=== PATIENT | male | born 1960 | race Caucasian/White ===

== ENCOUNTER 2017-04-19 18:05 | Emergency (ER) | payer SELFPAY ==
[2017-04-19 18:55] LABS: BASOPHIL# 0.1 X 10^3uL (0.0-0.1); BASOPHILS 0.7 % (0.0-2.0); EOSINOPHILS 1.6 % (0.0-6.0); EOSINOPHILS# 0.1 X 10^3uL (0.0-0.4); HEMATOCRIT 42.8 % (42.0-54.0); HEMOGLOBIN 14.3 g/dL (14.0-18.0); LYMPHOCYTES 31.1 % (20.0-40.0); LYMPHOCYTES# 2.8 X 10^3uL (0.8-3.8); MEAN CELL VOLUME 87.7 fL (80.0-100.0); MEAN CORPUS. HGB CONCENTRATION 33.5 g/dL (32.0-36.0); MEAN CORPUSCULAR HEMOGLOBIN 29.4 pg (29.0-35.0); MEAN PLATELET VOLUME 10.3 fL (7.4-10.4); MONOCYTES 9.1 % (2.0-10.0); MONOCYTES# 0.8 X 10^3uL (0.2-1.0); NEUTROPHILS 57.5 % (54.0-75.0); NEUTROPHILS# 5.3 X 10^3uL (2.6-6.7); RED BLOOD COUNT 4.88 X 10^6uL (4.20-6.10); RED CELL DISTRIBUTION WIDTH 13.9 % (11.5-14.5); WHITE BLOOD COUNT 9.1 X 10^3uL (3.9-10.7)
[2017-04-19 18:58] LABS: A/G RATIO 1.3; ALBUMIN 4.2 g/dL (3.5-5.0); BILIRUBIN, TOTAL 0.5 mg/dL (0.2-1.3); CALCIUM 9.5 mg/dL (8.4-10.2); MAGNESIUM 1.3 mg/dL (1.6-2.3); POTASSIUM 4.9 mmol/L (3.5-5.1); TOTAL PROTEIN 7.5 g/dL (6.3-8.2)
[2017-04-19] MEDS ORDERED: CLINDAMYCIN HCL 150 MG CAPSULE PO ONE (19:15)
--- NOTE | 2017-04-19 19:44 | ER NURSING DOCUMENTATION ---
Nurse's Notes [facility] Name:Mikey Chacon Age:56 yrs Sex:Male :1960 Arrival Date:04/19/2017 Time:18:05 Bed1 Private MD: Diagnosis:Cellulitis of Upper Limb Presentation: 04/19 18:06 Acuity: EUGENE 3 lc 18:13 Presenting complaint: Patient states: RELEASED FROM [facility] ON FROM HYPERKALEMIA lc EPISODE. TODAY C/O REDNESS, FIRMESS AND PAIN TO LEFT UPPER ARM FROM IV SITE. NO CHEST PAIN, SOB OR OTHER S/S. Transition of care: patient was not received from another setting of care. Notified ED Physician of patient's arrival and CC. 18:13 Method Of Arrival: Private Vehicle lc Triage Assessment: 18:17 General: Appears in no apparent distress, Behavior is appropriate for age, cooperative. lc Pain: Complains of pain in left bicep Pain radiates to anterior aspect of left shoulder Pain At worst was 8 out of 10 on a pain scale. Quality of pain is described as burning, aching, Pain began 3 hours ago. Neuro: Level of Consciousness is awake, alert, Oriented to person, place, time, event, Planning Coordinator are equal bilaterally Moves all extremities. Cardiovascular: Rhythm is sinus rhythm. Respiratory: Airway is patent Respiratory effort is even, unlabored, Breath sounds are clear bilaterally. Derm: Skin is pink, warm & dry. Injury Description: R/O PHLEBITIS. Historical: - Allergies: No known drug Allergies; - PMHx: KIDNEY CANCER; - PSHx: Tonsillectomy; PARTIAL KIDNEY REMOVED; - Tetanus: < 10 years. - Ebola Screening: : Patient negative for fever greater than or equal to 101.5 degrees Fahrenheit, and additional compatible Ebola Virus Disease symptoms. Patient denies exposure to infectious person. Patient denies travel to an Ebola-affected area in the 21 days before illness onset. No symptoms or risks identified at this time. . - Immunization history: Flu Vaccine < 1 year. - Social history: Smoking status: Patient states was never smoker of tobacco. Screenin:20 Infectious Disease Risk None. Abuse screen: Denies threats or abuse. Denies injuries lc from another. Nutritional screening: No deficits noted. Assessment: 18:20 See Triage Assessment done by same RN. lc Vital Signs: 18:07 BP 166 / 75; Pulse 73; Resp 20; Temp 98.4(O); Pulse Ox 91% on R/A; Weight 140.61 kg arc (R); Height 6 ft. 0 in. (182.88 cm) (R); Pain 8/10; 18:07 Body Mass Index 42.04 (140.61 kg, 182.88 cm) arc ED Course: 18:05 Patient arrived in ED. lm3 18:[address] RN is Primary Nurse. 18:06 Triage completed. lc 18:07 Luis Manuel Simpson MD is Attending Physician. tl1 18:22 Valuables Remains with patient Patient has correct armband on for positive lc identification. Bed in low position. Call light in reach. Side rails up X 1. Adult w/ patient. abseiling instructor on. Pulse ox on. 18:23 Labs drawn. By Lab Staff Sent per order to lab. 18:29 Elevated left arm. 19:37 Primary Nurse role handed off by Gretchen Street, SMILEY [facility] 19:37 Chrystal Matson RN is Primary Nurse. sc1 Administered Medications: 19:39 CANCELLED (Patient Refused): Clindamycin 450 mg PO once sc1 19:39 CANCELLED (Patient Refused): Clindamycin 150 mg PO once; 6 TABLETS TO GO HOME: 3 sc1 TABLETS BY MOUTH EVERY 6 HOURS. Outcome: 18:40 Discharge ordered by . tl1 19:41 Discharged to home ambulatory. sc1 19:41 Condition: stable 19:41 Discharge instructions given to patient, Instructed on discharge instructions, follow up and referral plans. Demonstrated understanding of instructions. 19:43 Patient left the ED. sc1 Signatures: Gretchen Street RN RN Chrystal Matson RN RN [facility] Luis Manuel Simpson MD MD 1 Chew, Yana, Reg Reg arc Vicki Mcguire 3
--- NOTE | 2017-04-19 19:44 | ER PHYSICIAN DOCUMENTATION ---
Physician Documentation [facility] Name:Mikey Chacon Age:56 yrs Sex:Male :1960 Arrival Date:04/19/2017 Time:18:05 Bed1 Private MD: Luis Manuel Irby Disposition: 04/19 20:36 Chart complete. tl1 Disposition: 04/19/17 18:40 Discharged to Home/Self Care. Impression: Cellulitis of Upper Limb. - Condition is Good. - Discharge Instructions: CELLULITIS. - Prescriptions for Clindamycin HCl 150 mg Oral - take 3 capsule by ORAL route every 6 hours for 10 days; 120 capsule. - Medical Reconciliation form form. - Follow up: Private Physician; When: 2 - 3 days; Reason: Recheck today's complaints, Continuance of care. - Problem is new. - Symptoms are unchanged. - Notes: GO TO [facility] NOW TO CHECK INTO THE EMERGENCY DEPARTMENT FOR AN ULTRASOUND OF YOUR ARM AND FURTHER EVALUATION IF YOU ARE NOT BETTER IN A DAY OR TWO, GO TO [facility] FOR AN ULTRASOUND OF YOUR ARM AND RE-EXAMINATION. RETURN HERE FOR FEVER, SHORTNESS OF BREATH, CHEST PAIN, COUGHING UP BLOOD,OR IF WORSE IN ANY WAY. HPI: 18:07 This 56 yrs old Male presents to ER with complaints of Left Arm Pain. tl1 18:07 The patient or guardian complains of pain, swelling. The complaints affect the left tl1 bicep. Onset: The symptom(s)/episode began/occurred gradually, today. He was hospitalized a week ago at [facility] in [place] for back pain and was found, incidentally to have hyperkalemia ( ?? 7.8) His meds were changed around, and he was d/c'd 3 days ago. Since then he has been well but today noted progressive redness, swelling and pain in the left biceps area, above where his IV was. He denies f/c/s. He called nursing staff at [facility] and was told to come to the ED for evaluation. He denies CP or dyspnea. He says he had a partial left nephrectomy in November of this year for renal cell carcinoma.. Historical: - Allergies: No known drug Allergies; - PMHx: KIDNEY CANCER; - PSHx: Tonsillectomy; PARTIAL KIDNEY REMOVED; - Tetanus: < 10 years. - Ebola Screening: : Patient negative for fever greater than or equal to 101.5 degrees Fahrenheit, and additional compatible Ebola Virus Disease symptoms. Patient denies exposure to infectious person. Patient denies travel to an Ebola-affected area in the 21 days before illness onset. No symptoms or risks identified at this time. . - Immunization history: Flu Vaccine < 1 year. - Social history: Smoking status: Patient states was never smoker of tobacco. ROS: 18:18 MS/extremity: Positive for erythema, pain, swelling, tenderness, of the left bicep. tl1 18:18 All other systems are negative. Exam: 18:05 Constitutional: This is a well developed, well nourished patient who is awake, alert, tl1 and in no acute distress. 18:05 Head/Face: Normocephalic, atraumatic. tl1 18:05 ENT: Nares patent. No nasal discharge, no septal abnormalities noted. Tympanic tl1 membranes are normal and external auditory canals are clear. Oropharynx with no redness, swelling, or masses, exudates, or evidence of obstruction, uvula midline. Mucous membranes moist. 18:05 Constitutional: The patient appears obese. 18:05 Cardiovascular: Rate: normal. 18:05 Respiratory: Respirations: normal. 18:05 Musculoskeletal/extremity: Extremities: grossly normal except: noted in the left bicep: erythema, pain, swelling, tenderness, Circulation is intact in all extremities. 18:05 Neuro: Exam negative for acute changes. Vital Signs: 18:07 BP 166 / 75; Pulse 73; Resp 20; Temp 98.4(O); Pulse Ox 91% on R/A; Weight 140.61 kg arc (R); Height 6 ft. 0 in. (182.88 cm) (R); Pain 8/10; 18:07 Body Mass Index 42.04 (140.61 kg, 182.88 cm) arc MDM: 18:07 Patient medically screened. tl1 19:00 Differential diagnosis: CELLULITIS, ABSCESS, THROMBOPHLEBITIS, NECROTIZING FASCIITIS. tl1 Data reviewed: vital signs, nurses notes, diagnostic data from outside facility, CBC, electrolytes, hepatic panel, radiologic studies, CT scan, old medical records, lab test result(s), CBC, electrolytes, and as a result, I will *Transfer Patient. Counseling: I had a detailed discussion with the patient and/or guardian regarding: the historical points, exam findings, and any diagnostic results supporting the discharge/admit diagnosis, lab results, the need to transfer to another facility, ULTRASOUND OR OTHER ADVANCED IMAGING OF LEFT ARM. Medication response: The patient's symptoms are unchanged despite medication administration. ED course: HE WOULD LIKE AN ULTRASOUND TONIGHT. WE CANNOT GET ONE ON A WEEKEND HERE. I DISCUSSED HIS CARE WITH DR RICKEY PEARSON, ED PHYSICIAN AT [facility] WHO GRACIOUSLY ACCEPTED THE PATIENT IN TRANSFER FOR FURTHER EVALUATION AND CARE.. 04/19 18:58 Order name: CBC AUTO DIF, MDIF/RMOR IF IND; Complete Time: 20:26 EDND 04/19 20:25 Interpretation: Normal: WHITE BLOOD COUNT 9.1; HEMOGLOBIN 14.3; HEMATOCRIT 42.8; tl1 PLATELET COUNT 204. 04/19 18:59 Order name: COMPREHENSIVE METABOLIC PANEL; Complete Time: 20:26 EDND 04/19 20:25 Interpretation: SODIUM 141; POTASSIUM 4.9; CHLORIDE 107; CARBON DIOXIDE 20; GLUCOSE tl1 164; BLOOD UREA NITROGEN 45; CREATININE 2.0; EST GLOMERULAR FILTRATION RATE 37. 04/19 18:59 Order name: MAGNESIUM; Complete Time: 20:26 EDND 04/19 20:25 Interpretation: Abnormal: MAGNESIUM 1.3. [facility] 04/19 19:04 Order name: DDIMER; Complete Time: 19:13 EDND 04/19 20:26 Interpretation: Abnormal: DDIMER 303. [facility] 04/19 18:24 Order name: Continuous Cardiac Monitoring; Complete Time: 18:24 04/19 18:24 Order name: Oxygen Sats; Complete Time: 18:24 Dispensed Medications: 19:39 CANCELLED (Patient Refused): Clindamycin 450 mg PO once sc1 19:39 CANCELLED (Patient Refused): Clindamycin 150 mg PO once; 6 TABLETS TO GO HOME: 3 sc1 TABLETS BY MOUTH EVERY 6 HOURS. Signatures: Shavonne Kevin RN RN rs Gretchen Street RN RN lc Campbell, Sandy, RN RN [facility] [place] Luis Manuel Simpson MD MD tl1
== END 2017-04-19 19:43 | disposition home or self-care (01) ==
LOC: ER 18:05
DX: T82.7XXA Infection and inflammatory reaction due to other cardiac and vascular devices, implants and grafts, initial encounter (principal); L03.114 Cellulitis of left upper limb; Z85.528 Personal history of other malignant neoplasm of kidney
CPT/HCPCS: 36415; 80053; 83735; 85025; 85379; 99284